=== PATIENT | female | born 1980 | race Caucasian/White ===

== ENCOUNTER 2017-04-11 05:52 | Emergency (ER) | payer OTHER ==
[2017-04-11 08:13] LABS: CALCIUM 8.1 mg/dL (8.5-10.1); CARBON DIOXIDE 25.7 mmol/L (21-32); CREATININE SERUM 1.1 mg/dL (0.6-1.0); POTASSIUM SERUM 4.5 mmol/L (3.5-5.1)
[2017-04-11 08:19] LABS: ALBUMIN 3.4 g/dL (3.4-5.0); BILIRUBIN TOTAL 0.2 mg/dL (0.20-1.00)
[2017-04-11 09:02] VITALS: BP 135/69
== END 2017-04-11 09:02 | disposition home or self-care (01) ==
LOC: ED 05:52
PROVIDERS: Emergency Medicine
DX: E86.0 Dehydration (principal); R25.2 Cramp and spasm; R19.7 Diarrhea, unspecified; F17.210 Nicotine dependence, cigarettes, uncomplicated
CPT/HCPCS: 36415